=== PATIENT | female | born 2000 | race African-American/Black ===

== ENCOUNTER 2023-12-31 13:34 | Emergency (ER) | payer OTHER ==
[2023-12-31 13:58] VITALS: BMI 28.1
[2023-12-31] MEDS ORDERED: ACETAMINOPHEN 500 MG TABLET (FP) ONE (15:50)
[2023-12-31] MEDS: ACETAMINOPHEN 500 MG TABLET (FP) PO ONE (15:54)
[2023-12-31] MEDS ORDERED: KETOROLAC TROMETHAMINE 30 MG/1 ML VIAL ONE (16:27)
[2023-12-31] MEDS: KETOROLAC TROMETHAMINE 30 MG/1 ML VIAL IM ONE (16:32)
[2023-12-31 17:19] VITALS: BP 99/66; PULSE 88; RESP 20; TEMP 98.1
== END 2023-12-31 17:32 | disposition home or self-care (01) ==
LOC: JER 13:34
PROC: 3E0133Z Introduction of Anti-inflammatory into Subcutaneous Tissue, Percutaneous Approach (ICD-10-PCS; principal; 2023-12-31)
DX: R07.89 Other chest pain (principal); G89.29 Other chronic pain; W50.0XXA Accidental hit or strike by another person, initial encounter
CPT/HCPCS: 71046-TC-FY; 84703; 93005; 93010